=== PATIENT | female | born 2000 | race Caucasian/White ===

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

== ENCOUNTER 2020-07-27 15:44 | Emergency (ER) | payer OTHER ==
[2020-07-27 16:04] VITALS: BP 130/76; PULSE 90; TEMP 98.4; BMI 73.0
== END 2020-07-27 17:44 | disposition home or self-care (01) ==
LOC: JER 15:44
DX: J20.9 Acute bronchitis, unspecified (principal); R09.81 Nasal congestion; Z11.52 Encounter for screening for COVID-19
CPT/HCPCS: 99283-25; C9803; U0003; U0005

== ENCOUNTER 2022-11-30 01:09 | Emergency (ER) | payer OTHER ==
[2022-11-30 01:17] VITALS: BP 114/80; PULSE 83; RESP 18; TEMP 98.1; BMI 32.5
[2022-11-30] MEDS ORDERED: ONDANSETRON 4 MG/2 ML VIAL IVPUSH ONE (01:43)
[2022-11-30] MEDS ORDERED: FAMOTIDINE 20 MG/50 ML IVPB 20 MG/50 ML MG IVPB ONE ×2 (01:43→01:49)
[2022-11-30] MEDS ORDERED: SODIUM CHLORIDE 1,000 ML IV STA (01:43)
[2022-11-30] MEDS ORDERED: ACETAMINOPHEN 1000 MG/100 ML BAG IVPB ONE (01:43)
[2022-11-30] MEDS ORDERED: ONDANSETRON 4 MG/2 ML VIAL ONE (01:49)
[2022-11-30] MEDS ORDERED: ACETAMINOPHEN INJECTION 100 ML IVPB ONE (02:03)
[2022-11-30 02:09] LABS: BASO % 0.3 % (0-2.0); EOS % 0.6 % (0-4.5); HEMATOCRIT 37.9 % (32.4-45.2); HEMOGLOBIN 12.6 GM/dL (10.7-15.3); LYMPH % 15.3 % (8-40); MCH 29.2 pg (25.7-33.7); MCHC 33.4 g/dl (32.0-36.0); MEAN CELL VOLUME 87.6 fl (80-96); MEAN PLT VOLUME 9.4 fl (7.5-11.1); MONO % 6.1 % (3.8-10.2); NEUT % 77.7 % (42.8-82.8); PLATELET COUNT 346 10^3/uL (134-434); RBC 4.33 M/mm3 (3.60-5.2); RDW 13.9 % (11.6-15.6); WHITE BLOOD COUNT 11.8 K/mm3 (4.0-10.0)
[2022-11-30 02:10] LABS: EPI CELLS >36 /uL (0-25.1); HYALINE CASTS 0 /uL (0-3.1); URINE APPEARANCE CLEAR; URINE BACTERIA 392 /uL (0-1359); URINE BILIRUBIN NEGATIVE (NEGATIVE); URINE COLOR YELLOW; URINE GLUCOSE (UA) NEGATIVE (NEGATIVE); URINE KETONE TRACE (NEGATIVE); URINE LEUK ESTERASE TRACE (NEGATIVE); URINE NITRITE NEGATIVE (NEGATIVE); URINE PROTEIN NEGATIVE (NEGATIVE); URINE RBC 6 /uL (0-23.9); URINE WBC 31 /uL (0-25.8)
[2022-11-30 02:28] LABS: POTASSIUM 4.8 mmol/L (3.5-5.1)
[2022-11-30 02:30] LABS: ALBUMIN 3.6 g/dl (3.4-5.0); BLOOD UREA NITROGEN 11.9 mg/dL (7-18); CALCIUM 8.4 mg/dL (8.5-10.1)
[2022-11-30 02:33] LABS: CREATININE 0.7 mg/dL (0.55-1.3)
[2022-11-30 02:35] LABS: TOT PROT 7.5 g/dl (6.4-8.2)
[2022-11-30 02:52] LABS: BILIRUBIN,TOTAL 0.3 mg/dL (0.2-1)
== END 2022-11-30 03:41 | disposition home or self-care (01) ==
LOC: JER 01:09
PROC: 3E033GC Introduction of Other Therapeutic Substance into Peripheral Vein, Percutaneous Approach (ICD-10-PCS; principal; 2022-11-30)
DX: R10.84 Generalized abdominal pain (principal); R11.2 Nausea with vomiting, unspecified
CPT/HCPCS: 36415; 80053; 81003; 83690; 83735; 84703; 85025; 87086; 99284-25

== ENCOUNTER 2022-12-01 12:29 | Emergency (ER) | payer OTHER ==
[2022-12-01 12:54] VITALS: BP 110/72; PULSE 120; RESP 20; TEMP 100.2; BMI 32.5
[2022-12-01] MEDS ORDERED: ACETAMINOPHEN 500 MG TABLET (FP) PO ONE (12:56)
[2022-12-01 15:00] LABS: EPI CELLS >36 /uL (0-25.1); HYALINE CASTS 1 /uL (0-3.1); PH,URINE 6.5 (5.0-8.0); URINE APPEARANCE CLEAR; URINE BACTERIA 555 /uL (0-1359); URINE BILIRUBIN NEGATIVE (NEGATIVE); URINE COLOR YELLOW; URINE GLUCOSE (UA) 1+ (NEGATIVE); URINE KETONE 1+ (NEGATIVE); URINE LEUK ESTERASE TRACE (NEGATIVE); URINE NITRITE NEGATIVE (NEGATIVE); URINE PROTEIN 1+ (NEGATIVE); URINE RBC 76 /uL (0-23.9); URINE WBC 45 /uL (0-25.8)
[2022-12-01] MEDS ORDERED: KETOROLAC TROMETHAMINE 30 MG/1 ML VIAL IM ONE (15:20)
[2022-12-01] MEDS ORDERED: KETOROLAC TROMETHAMINE 30 MG/1 ML VIAL ONE (15:21)
== END 2022-12-01 16:17 | disposition home or self-care (01) ==
LOC: JERFT 12:29
PROC: 3E0233Z Introduction of Anti-inflammatory into Muscle, Percutaneous Approach (ICD-10-PCS; principal; 2022-12-01)
DX: R50.9 Fever, unspecified (principal); R10.9 Unspecified abdominal pain; R11.0 Nausea; R53.83 Other fatigue; R07.0 Pain in throat; R51.9 Headache, unspecified; H92.02 Otalgia, left ear; R42 Dizziness and giddiness; R09.3 Abnormal sputum; J03.00 Acute streptococcal tonsillitis, unspecified; Z20.822 Contact with and (suspected) exposure to COVID-19
CPT/HCPCS: 0241U-QW; 81003; 84703; 87070; 87077; 87086; 87651; 99284-25

== ENCOUNTER 2022-12-06 11:38 | Emergency (ER) | payer OTHER ==
[2022-12-06 11:44] VITALS: BP 97/68; PULSE 81; RESP 18; TEMP 98.4; BMI 30.9
[2022-12-06] MEDS ORDERED: ALBUTEROL SO4 2.5/IPRATROPIUM 0.5 INH SOL 3 ML VIAL.NEB. NEB ONE ×2 (12:48→12:54)
[2022-12-06] MEDS ORDERED: LORATADINE 10 MG TABLET PO ONE (12:48)
[2022-12-06] MEDS ORDERED: LORATADINE 10 MG TABLET ONE (12:54)
== END 2022-12-06 13:12 | disposition home or self-care (01) ==
LOC: JERFT 11:38
PROC: 3E0F7GC Introduction of Other Therapeutic Substance into Respiratory Tract, Via Natural or Artificial Opening (ICD-10-PCS; principal; 2022-12-06)
DX: J45.21 Mild intermittent asthma with (acute) exacerbation (principal); R07.89 Other chest pain; R12 Heartburn; R06.02 Shortness of breath; R06.2 Wheezing; J30.2 Other seasonal allergic rhinitis; W20.8XXA Other cause of strike by thrown, projected or falling object, initial encounter; Y92.002 Bathroom of unspecified non-institutional (private) residence as the place of occurrence of the external cause
CPT/HCPCS: 99283-25

== ENCOUNTER 2023-02-16 02:47 | Emergency (ER) | payer OTHER ==
[2023-02-16 03:07] VITALS: BP 121/83; PULSE 78; RESP 18; TEMP 98.3
[2023-02-16] MEDS ORDERED: ACETAMINOPHEN 325 MG TABLET (FP) PO ONE (03:26)
[2023-02-16] MEDS ORDERED: KETOROLAC TROMETHAMINE 30 MG/1 ML VIAL IM ONE (03:27)
[2023-02-16] MEDS ORDERED: ACETAMINOPHEN 325 MG TABLET (FP) ONE (03:30)
[2023-02-16] MEDS ORDERED: KETOROLAC TROMETHAMINE 30 MG/1 ML VIAL ONE (03:31)
== END 2023-02-16 05:40 | disposition home or self-care (01) ==
LOC: JER 02:47
PROC: 3E0233Z Introduction of Anti-inflammatory into Muscle, Percutaneous Approach (ICD-10-PCS; principal; 2023-02-16)
DX: G43.909 Migraine, unspecified, not intractable, without status migrainosus (principal)
CPT/HCPCS: 93005; 93010; 99284-25

== ENCOUNTER 2023-02-19 07:09 | Emergency (ER) | payer OTHER ==
[2023-02-19 07:28] VITALS: RESP 18; BMI 30.9
[2023-02-19] MEDS ORDERED: SODIUM CHLORIDE 0.9% 500 ML INFUS.BAG IV ONE (08:21)
[2023-02-19] MEDS ORDERED: KETOROLAC TROMETHAMINE 30 MG/1 ML VIAL IVPUSH ONE (08:21)
[2023-02-19] MEDS ORDERED: METOCLOPRAMIDE HCL INJECTION 10 MG/2 ML VIAL IVPB ONE (08:22)
[2023-02-19] MEDS ORDERED: KETOROLAC TROMETHAMINE 30 MG/1 ML VIAL ONE (08:45)
[2023-02-19] MEDS ORDERED: METOCLOPRAMIDE HCL INJECTION 10 MG/2 ML VIAL ONE (08:45)
[2023-02-19 08:54] LABS: BASO % 0.2 % (0-2.0); EOS % 1.2 % (0-4.5); HEMATOCRIT 39.3 % (32.4-45.2); LYMPH % 23.6 % (8-40); MCH 29.2 pg (25.7-33.7); MCHC 33.2 g/dl (32.0-36.0); MEAN CELL VOLUME 88.1 fl (80-96); MEAN PLT VOLUME 8.9 fl (7.5-11.1); MONO % 6.4 % (3.8-10.2); NEUT % 68.6 % (42.8-82.8); PLATELET COUNT 315 10^3/uL (134-434); RBC 4.46 M/mm3 (3.60-5.2); RDW 14.4 % (11.6-15.6); WHITE BLOOD COUNT 8.1 K/mm3 (4.0-10.0)
[2023-02-19 09:31] LABS: POTASSIUM 4.2 mmol/L (3.5-5.1)
[2023-02-19 09:33] LABS: ALBUMIN 3.6 g/dl (3.4-5.0); CALCIUM 8.4 mg/dL (8.5-10.1)
[2023-02-19 09:36] LABS: CREATININE 0.6 mg/dL (0.55-1.3)
[2023-02-19 09:38] LABS: BILIRUBIN,TOTAL 0.3 mg/dL (0.2-1); TOT PROT 7.5 g/dl (6.4-8.2)
[2023-02-19 11:40] VITALS: BP 111/77; PULSE 76; TEMP 98.5
== END 2023-02-19 12:48 | disposition home or self-care (01) ==
LOC: JER 07:09
PROC: 3E0333Z Introduction of Anti-inflammatory into Peripheral Vein, Percutaneous Approach (ICD-10-PCS; principal; 2023-02-19)
PROC: 3E033GC Introduction of Other Therapeutic Substance into Peripheral Vein, Percutaneous Approach (ICD-10-PCS; 2023-02-19)
DX: G44.59 Other complicated headache syndrome (principal); R20.2 Paresthesia of skin; R11.0 Nausea; H53.8 Other visual disturbances; R07.9 Chest pain, unspecified; F41.9 Anxiety disorder, unspecified
CPT/HCPCS: 36415; 70450-TC; 80053; 84703; 85025; 93005; 93010; 99285-25

== ENCOUNTER 2023-03-09 10:05 | Emergency (ER) | payer OTHER ==
[2023-03-09 10:30] VITALS: BP 122/77; RESP 18; TEMP 98.7; BMI 30.9
[2023-03-09] MEDS ORDERED: KETOROLAC TROMETHAMINE 30 MG/1 ML VIAL IM ONE (11:18)
[2023-03-09] MEDS ORDERED: ACETAMINOPHEN 500 MG TABLET (FP) PO ONE (11:19)
[2023-03-09] MEDS ORDERED: LIDOCAINE 4% PATCH TP ONE ×2 (11:19→11:28)
[2023-03-09] MEDS ORDERED: KETOROLAC TROMETHAMINE 30 MG/1 ML VIAL ONE (11:28)
[2023-03-09] MEDS ORDERED: ACETAMINOPHEN 500 MG TABLET (FP) ONE (11:28)
[2023-03-09 11:50] VITALS: PULSE 95
[2023-03-09] MEDS ORDERED: LIDOCAINE PATCH REMOVAL MC SCH (22:00)
== END 2023-03-09 11:50 | disposition home or self-care (01) ==
LOC: JERFT 10:05
PROC: 3E0233Z Introduction of Anti-inflammatory into Muscle, Percutaneous Approach (ICD-10-PCS; principal; 2023-03-09)
DX: M54.2 Cervicalgia (principal); M41.9 Scoliosis, unspecified
CPT/HCPCS: 99284-25

== ENCOUNTER 2023-03-17 23:44 | Emergency (ER) | payer OTHER ==
[2023-03-17 23:57] VITALS: BP 124/77; PULSE 74; RESP 18; TEMP 98.1; BMI 34.9
[2023-03-18] MEDS ORDERED: ALBUTEROL SO4 2.5/IPRATROPIUM 0.5 INH SOL 3 ML VIAL.NEB. NEB ONE ×2 (00:14→00:24)
[2023-03-18] MEDS ORDERED: SODIUM CHLORIDE 0.9% 500 ML INFUS.BAG IV ONE (00:14)
[2023-03-18] MEDS ORDERED: METOCLOPRAMIDE HCL INJECTION 10 MG/2 ML VIAL IVPB ONE (00:14)
[2023-03-18] MEDS ORDERED: ACETAMINOPHEN 1000 MG/100 ML BAG IVPB ONE (00:14)
[2023-03-18] MEDS ORDERED: METOCLOPRAMIDE HCL INJECTION 10 MG/2 ML VIAL ONE (00:24)
[2023-03-18] MEDS ORDERED: ACETAMINOPHEN INJECTION 100 ML IVPB ONE (00:25)
[2023-03-18 00:51] LABS: BASO % 0.4 % (0-2.0); EOS % 0.9 % (0-4.5); HEMATOCRIT 38.7 % (32.4-45.2); HEMOGLOBIN 13.1 GM/dL (10.7-15.3); LYMPH % 35.4 % (8-40); MCH 29.5 pg (25.7-33.7); MCHC 33.8 g/dl (32.0-36.0); MEAN CELL VOLUME 87.1 fl (80-96); MEAN PLT VOLUME 9.3 fl (7.5-11.1); MONO % 8.2 % (3.8-10.2); NEUT % 55.1 % (42.8-82.8); PLATELET COUNT 297 10^3/uL (134-434); RBC 4.45 M/mm3 (3.60-5.2); RDW 13.9 % (11.6-15.6); WHITE BLOOD COUNT 7.3 K/mm3 (4.0-10.0)
[2023-03-18 00:59] LABS: INR 1.05 (0.83-1.09); PROTHROMBIN TIME (PATIENT) 12.2 SEC (9.7-13.0)
[2023-03-18 01:01] LABS: ACTIVATED PTT 35.8 SECONDS (25.2-36.5)
[2023-03-18 01:10] LABS: POTASSIUM 3.9 mmol/L (3.5-5.1)
[2023-03-18 01:12] LABS: CALCIUM 8.5 mg/dL (8.5-10.1)
[2023-03-18 01:13] LABS: ALBUMIN 3.7 g/dl (3.4-5.0)
[2023-03-18 01:16] LABS: CREATININE 0.7 mg/dL (0.55-1.3)
[2023-03-18 01:18] LABS: BILIRUBIN,TOTAL 0.2 mg/dL (0.2-1); TOT PROT 7.3 g/dl (6.4-8.2)
[2023-03-18] MEDS ORDERED: DEXAMETHASONE SOD PHOSPHATE 10 MG/1 ML VIAL IVPUSH ONE (01:36)
[2023-03-18] MEDS ORDERED: DEXAMETHASONE SOD PHOSPHATE 10 MG/1 ML VIAL ONE (01:49)
== END 2023-03-18 01:58 | disposition home or self-care (01) ==
LOC: JER 23:44
PROC: 3E033NZ Introduction of Analgesics, Hypnotics, Sedatives into Peripheral Vein, Percutaneous Approach (ICD-10-PCS; principal; 2023-03-18)
PROC: 3E033GC Introduction of Other Therapeutic Substance into Peripheral Vein, Percutaneous Approach (ICD-10-PCS; 2023-03-18)
PROC: 3E033GC Introduction of Other Therapeutic Substance into Peripheral Vein, Percutaneous Approach (ICD-10-PCS; 2023-03-18)
PROC: 3E0F7GC Introduction of Other Therapeutic Substance into Respiratory Tract, Via Natural or Artificial Opening (ICD-10-PCS; 2023-03-18)
DX: R07.9 Chest pain, unspecified (principal); R51.9 Headache, unspecified; J45.909 Unspecified asthma, uncomplicated; R20.2 Paresthesia of skin
CPT/HCPCS: 36415; 71046-TC-FY; 80053; 83735; 84484; 84703; 85025; 85610; 85730; 93005; 93010; 99285-25; J1100

== ENCOUNTER 2023-03-20 10:12 | Emergency (ER) | payer OTHER ==
[2023-03-20 10:47] VITALS: BP 113/74; PULSE 86; RESP 18; TEMP 98.1; BMI 31.7
[2023-03-20] MEDS ORDERED: SODIUM CHLORIDE 500 ML IV STA (10:59)
[2023-03-20] MEDS ORDERED: FAMOTIDINE 20 MG/50 ML IVPB 20 MG/50 ML MG IVPB ONE ×2 (10:59→11:17)
[2023-03-20] MEDS ORDERED: MAG HYDROX/AL HYDROX/SIMETH 30 ML UNIT-DOSE CUP PO ONE (11:01)
[2023-03-20] MEDS ORDERED: MAG HYDROX/AL HYDROX/SIMETH 30 ML UNIT-DOSE CUP ONE (11:17)
[2023-03-20 11:24] LABS: BASO % 0.5 % (0-2.0); EOS % 2.1 % (0-4.5); HEMATOCRIT 39.6 % (32.4-45.2); HEMOGLOBIN 13.6 GM/dL (10.7-15.3); LYMPH % 36.8 % (8-40); MCHC 34.2 g/dl (32.0-36.0); MEAN CELL VOLUME 87.6 fl (80-96); MEAN PLT VOLUME 9.5 fl (7.5-11.1); MONO % 8.4 % (3.8-10.2); NEUT % 52.2 % (42.8-82.8); PLATELET COUNT 287 10^3/uL (134-434); RBC 4.52 M/mm3 (3.60-5.2); RDW 13.9 % (11.6-15.6); WHITE BLOOD COUNT 5.9 K/mm3 (4.0-10.0)
[2023-03-20 12:01] LABS: POTASSIUM 3.7 mmol/L (3.5-5.1)
[2023-03-20 12:09] LABS: ALBUMIN 3.7 g/dl (3.4-5.0); BLOOD UREA NITROGEN 8.7 mg/dL (7-18); CALCIUM 8.7 mg/dL (8.5-10.1); CREATININE 0.7 mg/dL (0.55-1.3)
[2023-03-20 12:11] LABS: BILIRUBIN,TOTAL 0.3 mg/dL (0.2-1); TOT PROT 7.4 g/dl (6.4-8.2)
== END 2023-03-20 12:40 | disposition home or self-care (01) ==
LOC: JER 10:12
PROC: 3E033GC Introduction of Other Therapeutic Substance into Peripheral Vein, Percutaneous Approach (ICD-10-PCS; principal; 2023-03-20)
PROC: 3E0337Z Introduction of Electrolytic and Water Balance Substance into Peripheral Vein, Percutaneous Approach (ICD-10-PCS; 2023-03-20)
DX: R51.9 Headache, unspecified (principal); R07.89 Other chest pain; R10.13 Epigastric pain; K21.9 Gastro-esophageal reflux disease without esophagitis
CPT/HCPCS: 36415; 71046-TC-FY; 80053; 83690; 84703; 85025; 93005; 93010; 99285-25

== ENCOUNTER 2023-04-12 23:25 | Inpatient (IN) | payer OTHER ==
[2023-04-12 23:34] VITALS: BMI 32.5
[2023-04-13 01:44] LABS: INR 1.07 (0.83-1.09); PROTHROMBIN TIME (PATIENT) 12.4 SEC (9.7-13.0)
[2023-04-13 01:46] LABS: ACTIVATED PTT 39.7 SECONDS (25.2-36.5)
[2023-04-13 01:55] LABS: POTASSIUM 3.8 mmol/L (3.5-5.1)
[2023-04-13 01:57] LABS: ALBUMIN 3.8 g/dl (3.4-5.0); CALCIUM 8.9 mg/dL (8.5-10.1)
[2023-04-13 01:59] LABS: BLOOD UREA NITROGEN 9.7 mg/dL (7-18)
[2023-04-13 02:01] LABS: CREATININE 0.7 mg/dL (0.55-1.3)
[2023-04-13 02:03] LABS: BILIRUBIN,TOTAL 0.4 mg/dL (0.2-1)
[2023-04-13] MEDS ORDERED: ALBUTEROL SO4 2.5/IPRATROPIUM 0.5 INH SOL 3 ML VIAL.NEB. NEB PRN (03:32)
[2023-04-13] MEDS ORDERED: ACETAMINOPHEN 1000 MG/100 ML BAG IVPB PRN (03:34)
[2023-04-13] MEDS ORDERED: ASPIRIN 81 MG CHEWABLE TABLETS PO ONE (04:56)
[2023-04-13 05:17] LABS: PH,URINE 6.5 (5.0-8.0); URINE APPEARANCE Error; URINE BILIRUBIN NEGATIVE (NEGATIVE); URINE COLOR YELLOW; URINE GLUCOSE (UA) NEGATIVE (NEGATIVE); URINE KETONE TRACE (NEGATIVE); URINE LEUK ESTERASE NEGATIVE (NEGATIVE); URINE NITRITE NEGATIVE (NEGATIVE); URINE PROTEIN NEGATIVE (NEGATIVE); URINE UROBILINOGEN 0.2 mg/dL (0.2-1.0)
[2023-04-13] MEDS ORDERED: ASPIRIN 81 MG CHEWABLE TABLETS ONE ×2 (05:18→09:22)
[2023-04-13 06:36] VITALS: TEMP 97.8
[2023-04-13] MEDS ORDERED: ACETAMINOPHEN INJECTION 100 ML IVPB ONE (06:57)
[2023-04-13 06:59] LABS: COCAINE, UR NEGATIVE (NEGATIVE); OPIATES, URI NEGATIVE (NEGATIVE); PHENCYCLIDINE,URINE NEGATIVE (NEGATIVE); URINE BARBITURATES NEGATIVE (NEGATIVE)
[2023-04-13 07:00] LABS: METHADONE, UR NEGATIVE (NEGATIVE)
[2023-04-13 07:16] LABS: URINE AMPHETAMINES NEGATIVE (NEGATIVE); URINE BENZODIAZEPINES NEGATIVE (NEGATIVE)
[2023-04-13] MEDS ORDERED: TOPIRAMATE 25 MG TABLET ONE (09:22)
[2023-04-13 09:44] VITALS: BP 119/74; PULSE 92; RESP 16
[2023-04-13] MEDS ORDERED: ENOXAPARIN NA (PORCINE) 40 MG/0.4 ML DISP.SYRIN SQ SCH (10:00)
[2023-04-13] MEDS ORDERED: TOPIRAMATE 25 MG TABLET PO SCH (10:00)
[2023-04-13 11:23] LABS: BASO % 0.2 % (0-2.0); EOS % 1.1 % (0-4.5); HEMATOCRIT 39.8 % (32.4-45.2); HEMOGLOBIN 13.4 GM/dL (10.7-15.3); LYMPH % 24.7 % (8-40); MCH 29.7 pg (25.7-33.7); MCHC 33.6 g/dl (32.0-36.0); MEAN CELL VOLUME 88.4 fl (80-96); MEAN PLT VOLUME 9.8 fl (7.5-11.1); MONO % 6.2 % (3.8-10.2); NEUT % 67.8 % (42.8-82.8); PLATELET COUNT 259 10^3/uL (134-434); RDW 13.5 % (11.6-15.6); WHITE BLOOD COUNT 7.5 K/mm3 (4.0-10.0)
[2023-04-13 13:01] LABS: HIV INTERPRETATION NEGATIVE (NEGATIVE)
[2023-04-14] MEDS ORDERED: ASPIRIN 81 MG CHEWABLE TABLETS PO SCH (10:00)
== END 2023-04-13 12:50 | disposition home or self-care (01) | DRG 54 ==
LOC: JER 23:25 → JERBED 04-13 00:16 → OBSVTOIN 04-13 06:43
PROVIDERS: ADMIT Internal Medicine
DX: G43.909 Migraine, unspecified, not intractable, without status migrainosus (principal); J45.909 Unspecified asthma, uncomplicated; R20.0 Anesthesia of skin; K21.9 Gastro-esophageal reflux disease without esophagitis
CPT/HCPCS: 0241U-QW; 70450-TC; 70544-TC; 70551-TC; 80053; 80061; 80307; 81003; 82550; 82607; 82962; 83036; 84443; 84484; 84703; 85025; 85610; 85730; 86850; 86900; 86901; 87086; 87389; 93005; 93010; 93306-TC; 93880-TC; 99285-25; G0378

== ENCOUNTER 2023-05-12 20:04 | Emergency (ER) | payer OTHER ==
[2023-05-12 20:13] VITALS: BMI 31.6
[2023-05-13 01:05] VITALS: RESP 18
[2023-05-13] MEDS ORDERED: guaiFENesin/D-METHORPHAN HB 10 ML UNIT-DOSE CUPS PO ONE (05:42)
[2023-05-13] MEDS ORDERED: ACETAMINOPHEN 325 MG TABLET (FP) PO ONE (05:47)
[2023-05-13 09:38] VITALS: BP 133/95; PULSE 92; TEMP 98.8
[2023-05-13 10:56] LABS: EPI CELLS 34 /uL (0-25.1); HYALINE CASTS 2 /uL (0-3.1); URINE APPEARANCE CLEAR; URINE BACTERIA 1040 /uL (0-1359); URINE BILIRUBIN NEGATIVE (NEGATIVE); URINE COLOR YELLOW; URINE GLUCOSE (UA) NEGATIVE (NEGATIVE); URINE KETONE 3+ (NEGATIVE); URINE LEUK ESTERASE TRACE (NEGATIVE); URINE NITRITE NEGATIVE (NEGATIVE); URINE PROTEIN NEGATIVE (NEGATIVE); URINE UROBILINOGEN 0.2 mg/dL (0.2-1.0); URINE WBC 35 /uL (0-25.8)
[2023-05-13 11:00] LABS: HCG,QUALITATIVE URINE Negative
[2023-05-13 11:02] LABS: BASO % 0.5 % (0-2.0); EOS % 5.5 % (0-4.5); HEMATOCRIT 39.2 % (32.4-45.2); HEMOGLOBIN 13.3 GM/dL (10.7-15.3); LYMPH % 26.6 % (8-40); MCH 30.2 pg (25.7-33.7); MCHC 33.9 g/dl (32.0-36.0); MEAN PLT VOLUME 9.9 fl (7.5-11.1); MONO % 9.8 % (3.8-10.2); NEUT % 57.6 % (42.8-82.8); PLATELET COUNT 264 10^3/uL (134-434); RBC 4.41 M/mm3 (3.60-5.2); RDW 14.3 % (11.6-15.6)
[2023-05-13 11:19] LABS: URINE RBC 84.9 /uL (0-23.9)
[2023-05-13 12:23] LABS: ALBUMIN 3.6 g/dl (3.4-5.0); ALK PHOS 68 U/L (45-117); ANION GAP 9 mmol/L (4-13); BILIRUBIN,TOTAL 0.3 mg/dL (0.2-1); BLOOD UREA NITROGEN 5.4 mg/dL (7-18); CALCIUM 9.1 mg/dL (8.5-10.1); CHLORIDE 106 mmol/L (98-107); CO2 25 mmol/L (21-32); CREATININE 0.6 mg/dL (0.55-1.3); GLUCOSE,RANDOM 81 mg/dL (74-106); POTASSIUM 3.8 mmol/L (3.5-5.1); SGOT/AST 15 U/L (15-37); SGPT/ALT 29 U/L (13-61); SODIUM 139 mmol/L (136-145); TOT PROT 7.3 g/dl (6.4-8.2)
[2023-05-13 14:55] LABS: METHADONE, UR NEGATIVE (NEGATIVE)
[2023-05-13 14:56] LABS: OPIATES, URI NEGATIVE (NEGATIVE); PHENCYCLIDINE,URINE NEGATIVE (NEGATIVE)
[2023-05-13 14:57] LABS: COCAINE, UR NEGATIVE (NEGATIVE); URINE AMPHETAMINES NEGATIVE (NEGATIVE); URINE BARBITURATES NEGATIVE (NEGATIVE); URINE BENZODIAZEPINES NEGATIVE (NEGATIVE)
== END 2023-05-13 11:33 | disposition home or self-care (01) ==
LOC: JER 20:04
DX: J02.9 Acute pharyngitis, unspecified (principal); R05.9 Cough, unspecified; R45.851 Suicidal ideations; F41.8 Other specified anxiety disorders; B97.4 Respiratory syncytial virus as the cause of diseases classified elsewhere; Z20.822 Contact with and (suspected) exposure to COVID-19
CPT/HCPCS: 0241U-QW; 36415; 80053; 80307; 81003; 84703; 85025; 93005; 93010; 99284-25

== ENCOUNTER 2023-10-30 14:23 | Emergency (ER) | payer OTHER ==
[2023-10-30 14:34] VITALS: BP 120/73; PULSE 89; RESP 16; TEMP 98.4
[2023-10-30] MEDS ORDERED: ACETAMINOPHEN 1000 MG/100 ML BAG IVPB ONE (14:45)
[2023-10-30] MEDS ORDERED: ONDANSETRON 4 MG/2 ML VIAL IVPUSH ONE (14:46)
[2023-10-30] MEDS ORDERED: METOCLOPRAMIDE HCL INJECTION 10 MG/2 ML VIAL ONE (15:30)
[2023-10-30 15:43] LABS: PH,URINE 8.5 (5.0-8.0); URINE APPEARANCE CLEAR; URINE BILIRUBIN NEGATIVE (NEGATIVE); URINE COLOR YELLOW; URINE GLUCOSE (UA) NEGATIVE (NEGATIVE); URINE KETONE NEGATIVE (NEGATIVE); URINE LEUK ESTERASE NEGATIVE (NEGATIVE); URINE NITRITE NEGATIVE (NEGATIVE); URINE PROTEIN NEGATIVE (NEGATIVE)
[2023-10-30] MEDS: LACTATED RINGERS SOLUTION 1000 ML INFUS.BAG IV ONE (15:51)
[2023-10-30] MEDS: METOCLOPRAMIDE HCL INJECTION 10 MG/2 ML VIAL IVPB ONE (15:51)
[2023-10-30] MEDS: ACETAMINOPHEN 500 MG TABLET (FP) PO ONE (15:57)
== END 2023-10-30 16:35 | disposition home or self-care (01) ==
LOC: JER 14:23
PROC: 3E033GC Introduction of Other Therapeutic Substance into Peripheral Vein, Percutaneous Approach (ICD-10-PCS; principal; 2023-10-30)
DX: R51.9 Headache, unspecified (principal); R11.0 Nausea; H53.149 Visual discomfort, unspecified; R35.0 Frequency of micturition; R14.0 Abdominal distension (gaseous)
CPT/HCPCS: 81003; 84703; 87086; 99284-25